=== PATIENT | male | born 1985 | race American Indian/Alaskan Native ===

== ENCOUNTER 2018-01-09 20:42 | Emergency (ER) | payer OTHER ==
--- NOTE | 2018-01-09 22:09 | XRay Report ---
FINAL REPORT EXAM: XR KNEE 3V RT HISTORY: knee PAIN AND SWELLING S/P FALL TECHNIQUE: Three views of the right knee PRIORS: None. FINDINGS: The bones are normally aligned and mineralized. The joint spaces are well-preserved. There is no evidence of acute fracture. The soft tissues are unremarkable. IMPRESSION: No evidence of acute fracture or subluxation.
[2018-01-10 01:49] VITALS: BP 164/95
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
[2018-01-10] MEDS ORDERED: NORCO 5/325 PO ONE (03:42)
[2018-01-10] MEDS ORDERED: MOTRIN PO ONE ×2 (03:42→03:57)
[2018-01-10] MEDS ORDERED: BOOSTRIX IM ONE (04:07)
== END 2018-01-10 04:26 | disposition home or self-care (01) ==
LOC: ED 20:42
DX: S80.211A Abrasion, right knee, initial encounter (principal); I10 Essential (primary) hypertension; F17.200 Nicotine dependence, unspecified, uncomplicated; W19.XXXA Unspecified fall, initial encounter; Y93.89 Activity, other specified; Y92.410 Unspecified street and highway as the place of occurrence of the external cause; Y99.8 Other external cause status
CPT/HCPCS: 99283